=== PATIENT | female | born 1955 | race Caucasian/White ===

== ENCOUNTER → 2018-05-02 | Day surgery (SDC) | payer OTHER ==
[~2018-05-02] VITALS: Ht 157.5 cm; Wt 83.9 kg
[~2018-05-02] MED LIST: ALUMCHW6 PO; ASPI81TA27 PO; BUSP15TA60 PO; CHOL1CAP48 PO; ESTR10TA5 VA; HYDR-531 PO; HYDROmorphone HCL 2 MG/ML VL IV PRN; LIDOCAINE HCL 2% TOP JELLY 5ML TOP ONE; MEPERIDINE HCL (50 MG/ML) 1 ML VIAL ONE; METOCLOPRAMIDE HCL 5MG/ml INJ 2ml VIAL IV ONE; MIDAZOLAM HCL 1MG/1ML-2 ML VIAL ONE; OMEP20TA85 PO; ONDANSETRON HCL 4 MG/2 ML VIAL ONE; PREG75CA PO; PROPOFOL 10 MG/ML 20 ML IV ONE; SODIUM CHLORIDE LOCK 10 ML ONE; SUCR1TAB PO; ceFAZolin 1GM/50ML 50 ML IV ONE; fentaNYL CITRATE 100 MCG/2 ML VL ONE
[2018-05-02 11:10] VITALS: BP 137/65
== END | disposition home or self-care (01) ==
LOC: SUR 07:06
PROVIDERS: ATTEND Orthopaedic Surgery
DX: S83.221A Peripheral tear of medial meniscus, current injury, right knee, initial encounter (principal); M94.261 Chondromalacia, right knee; E66.9 Obesity, unspecified; M79.89 Other specified soft tissue disorders; N83.299 Other ovarian cyst, unspecified side; K21.9 Gastro-esophageal reflux disease without esophagitis; I10 Essential (primary) hypertension; F32.9 Major depressive disorder, single episode, unspecified; Z79.899 Other long term (current) drug therapy; Z88.8 Allergy status to other drugs, medicaments and biological substances; Z90.710 Acquired absence of both cervix and uterus; Z90.49 Acquired absence of other specified parts of digestive tract; Z86.718 Personal history of other venous thrombosis and embolism; Z98.890 Other specified postprocedural states; Z68.33 Body mass index [BMI] 33.0-33.9, adult; X58.XXXA Exposure to other specified factors, initial encounter; Y93.89 Activity, other specified; Y92.89 Other specified places as the place of occurrence of the external cause; Y99.8 Other external cause status
CPT/HCPCS: 29881; A6257; J0690; J1170; J2175; J2250; J2405; J2704; J3010